=== PATIENT | female | born 1990 | race Caucasian/White ===

== ENCOUNTER 2017-12-04 00:05 | Emergency (ER) | payer BC ==
[~2017-12-04] VITALS: Ht 167.6 cm; Wt 63.2 kg
[2017-12-04 00:21] VITALS: Ht 167.6 cm; Wt 63.2 kg
[2017-12-04 02:05] LABS: UA SPECIFIC GRAVITY <=1.005 (1.005-1.035); microscopic required? YES; urine erythrocyte 3+ (NEGATIVE)
[2017-12-04 02:09] VITALS: BP 140/81
== END 2017-12-04 02:09 | disposition home or self-care (01) ==
LOC: ED 00:05
PROVIDERS: Emergency Medicine
DX: N30.90 Cystitis, unspecified without hematuria (principal); Z88.0 Allergy status to penicillin; Z88.1 Allergy status to other antibiotic agents